=== PATIENT | female | born 1980 | race Caucasian/White ===

== ENCOUNTER 2024-05-28 22:07 | Emergency (ER) | payer MEDICAID ==
[~2024-05-28] VITALS: Ht 160 cm; Wt 90.7 kg
[~2024-05-28 22:07] MED LIST: METO50TA7 PO
[2024-05-28] MEDS ORDERED: hydrALAZINE HCL IV 20 MG VIAL ONE (23:35)
[2024-05-28] MEDS: hydrALAZINE HCL IV 20 MG VIAL IV ONE (23:38)
[2024-05-28 23:53] LABS: BASOPHILS % (AUTO) 0.4 % (0.0-2.0); EOSINOPHILS % (AUTO) 0.6 % (0.0-6.0); HEMATOCRIT 35 % (33-45); HEMOGLOBIN 11.6 g/dL (11.5-14.8); LYMPHOCYTES # (AUTO) 3.2 K/uL (0.8-4.8); LYMPHOCYTES % (AUTO) 42.6 % (20.0-44.0); MEAN CORPUSCULAR HEMOGLOBIN 24 PG (26.0-33.0); MEAN CORPUSCULAR HGB CONC 33 g/dl (31.0-36.0); MEAN CORPUSCULAR VOLUME 73 fL (82-100); MONOCYTES # (AUTO) 0.5 K/uL (0.1-1.30); MONOCYTES % (AUTO) 7.2 % (2.0-12.0); NEUTROPHILS # (AUTO) 3.7 K/uL (1.8-8.9); NEUTROPHILS % (AUTO) 49.2 % (43.0-81.0); PLATELET COUNT (AUTO) 300 K/uL (150-450); RED BLOOD CELL COUNT(AUTO) 4.85 MIL/uL (4.0-5.2); RED CELL DISTRIBUTION WIDTH 16.1 % (11.5-15.0); WHITE BLOOD COUNT (AUTO) 7.5 K/uL (4.3-11.0)
[2024-05-29 00:23] LABS: CREATININE 0.8 mg/dL (0.6-1.3); POTASSIUM 3.5 mmol/L (3.5-5.1)
[2024-05-29] MEDS ORDERED: AMLO10TA4 PO (00:41)
[2024-05-29 01:09] VITALS: BP 166/93; TEMP 98.5; O2SAT 98
== END 2024-05-29 01:15 | disposition home or self-care (01) ==
LOC: ER 22:09
DX: I10 Essential (primary) hypertension (principal); F41.9 Anxiety disorder, unspecified; Z86.79 Personal history of other diseases of the circulatory system
CPT/HCPCS: 99285; 96374; 71045; 93005; 85025; 80048; 36415; J0360